=== PATIENT | female | born 1995 | race Two or more races ===

== ENCOUNTER 2016-12-03 13:25 | Emergency (ER) | payer OTHER ==
[2016-12-03 13:41] VITALS: BP 155/75; BMI 25.0
[2016-12-03] MEDS ORDERED: ACETAMINOPHEN 325 MG TABLET (FP) PO ONE (13:46)
--- NOTE | 2016-12-03 14:11 | PDOC ---
History of Present Illness - General Chief Complaint: Cold Symptoms Stated Complaint: FEVER, HEADACHE Time Seen by Provider: 12/03/16 13:51 History Source: Patient Exam Limitations: No Limitations - History of Present Illness Initial Comments: 12/03/16 14:07 Chief complaint: Fever, headache, sore throat productive cough History Of present illness: Patient is a 21 year old female with no significant medical history here today complaining of fever, with generalized headache and sore throat with productive cough of yellowish phlegm for 2 days. Patient reports 3 days ago she started to feel slightly ill with decreased energy. Denies any difficulty swallowing or breathing. Patient denies any nausea vomiting or diarrhea. Patient did not have influenza vaccine. Patient denies any sick contacts or any recent travel. Timing/Duration: intermittent Associated Symptoms: reports: cough (productive yellowish ), fever/chills, other (nasal congestion, headache, sore throat ) Past History - Past Medical History Allergies/Adverse Reactions: Allergies Allergy/AdvReac Type Severity Reaction Status Date / Time inh Allergy Rash Uncoded 12/03/16 13:37 Home Medications: Ambulatory Orders Oseltamivir Phosphate [Tamiflu -] 75 mg PO BID #10 capsule MDD 2 12/03/16 Other medical history: DENIES. - Surgical History Abdominal Surgery: Yes (intestinal resection) - Immunization History Immunization Up to Date: Yes - Psycho/Social/Smoking Cessation Hx Anxiety: No Suicidal Ideation: No Smoking History: Current some day smoker Have you smoked in the past 12 months: Yes Information on smoking cessation initiated: No Hx Alcohol Use: No Substance Use Type: None Review of Systems - Review of Systems Able to Perform ROS?: Yes Constitutional: Yes: Fever, Loss of Appetite HEENTM: Yes: Nose Congestion, Throat Pain Respiratory: Yes: Productive cough (yellowish ) Cardiac (ROS): No: Symptoms Reported ABD/GI: No: Symptoms Reported : No: Symptoms Reported Musculoskeletal: No: Symptoms Reported Integumentary: No: Symptoms Reported Neurological: Yes: Headache (generalized) *Physical Exam - Vital Signs Last Vital Signs Temp Pulse Resp BP Pulse Ox 101.8 F H 124 H 19 155/75 97 12/03/16 13:38 12/03/16 13:38 12/03/16 13:38 12/03/16 13:38 12/03/16 13:38 - Physical Exam General Appearance: Yes: Appropriately Dressed HEENT: positive: EOMI, [place], Normal ENT Inspection, TMs Normal, Pharyngeal Erythema, Tonsillar Erythema (with no uvular deviation), Nasal Congestion. negative: Tonsillar Exudate, Rhinorrhea, Sinus Tenderness Neck: negative: Lymphadenopathy (R), Lymphadenopathy (L) Respiratory/Chest: positive: Lungs Clear, Normal Breath Sounds. negative: Chest Tender, Respiratory Distress Cardiovascular: positive: Regular Rhythm, Regular Rate, S1, S2 Neurologic: positive: Fully Oriented, Alert, Normal Response, Responsive. negative: Respond to painful stimul, Numbness, Sensory Deficit Medical Decision Making - Medical Decision Making 12/03/16 14:11 Patient is a 21 year old female with no significant medical history here today complaining of fever, with generalized headache and sore throat with productive cough of yellowish phlegm for 2 days. Patient reports 3 days ago she started to feel slightly ill with decreased energy. Denies any difficulty swallowing or breathing. Patient denies any nausea vomiting or diarrhea. Patient did not have influenza vaccine. Patient denies any sick contacts or any recent travel. R/O Influenza A or B rapid throat C & S rapid PLAN: throat C & S rapid negative influenza A & B rapid + for influenza A tamiflu 75 mg bid for 5 days 12/03/16 15:10 12/03/16 15:11 *DC/Admit/Observation/Transfer Diagnosis at time of Disposition: Influenza A - Discharge Dispostion Disposition: HOME Condition at time of disposition: Stable - Prescriptions Prescriptions: Oseltamivir Phosphate [Tamiflu -] 75 mg PO BID #10 capsule MDD 2 - Patient Instructions Additional Instructions: Drink a lot of fluids and rest Take ibuprofen or acetaminophen as needed as directed by district plant supervisor for fever or body aches or headache Follow-up with your primary care provider within the next few days Return to emergency room if any difficulty breathing Patient voiced understanding of discharge instructions and all questions were answered
[2016-12-03 15:09] VITALS: PULSE 111; TEMP 100.8
== END 2016-12-03 15:20 | disposition home or self-care (01) ==
LOC: JERFT 13:25
DX: J09.X2 Influenza due to identified novel influenza A virus with other respiratory manifestations (principal)
CPT/HCPCS: 87070; 87430; 87804; 99281-25

== ENCOUNTER 2018-08-31 22:38 | Emergency (ER) | payer OTHER ==
[2018-08-31 22:42] VITALS: BP 127/72; PULSE 89; TEMP 98.9; BMI 25.0
[2018-08-31] MEDS ORDERED: ACETAMINOPHEN 500 MG TABLET (FP) PO ONE (23:39)
[2018-08-31] MEDS ORDERED: ACETAMINOPHEN 325 MG TABLET (FP) ONE (23:41)
--- NOTE | 2018-08-31 23:50 | PDOC ---
History of Present Illness - General Chief Complaint: Nausea/Vomiting Stated Complaint: Nausea/Vomiting Time Seen by Provider: 08/31/18 23:26 History Source: Patient Exam Limitations: No Limitations - History of Present Illness Initial Comments: This is a 22 YOF with h/o partial colectomy for congenital malrotation (first corrective abdominal surgery at 2 days old and second one at 12 years old) and occasional marijuana use who p/w one day of mild fever (measured 100 orally today at home), chills, malaise, middle and upper abdominal discomfort, nausea, and ~15 episodes of vomiting all onset this morning shortly after she awakened. She did not drink EtOH last night. The vomiting started NBNB but she had ~10 episodes first thing in the morning and toward the end of this she began to have light pink streaks in the vomitus. She denies any headache, neck pain, lightheadedness, chest pain, SOB, cough, sore throat, dysuria, or other symptoms. She did not get an influenza vaccination this year. Nobody around her has been ill lately. Family is concerned for the fact that she had a salad last night with the recent scare of contaminated [place] lettuce. Past History - Past Medical History Allergies/Adverse Reactions: Allergies Allergy/AdvReac Type Severity Reaction Status Date / Time isoniazid Allergy Verified 08/31/18 22:42 inh Allergy Rash Uncoded 08/31/18 22:42 Home Medications: Ambulatory Orders NK [No Known Home Medication] 04/11/18 COPD: No - Surgical History Abdominal Surgery: Yes (intestinal resection) - Immunization History Immunization Up to Date: Yes - Suicide/Smoking/Psychosocial Hx Smoking History: Never smoked Have you smoked in the past 12 months: Yes Hx Alcohol Use: No Drug/Substance Use Hx: No Substance Use Type: Marijuana Review of Systems - Review of Systems Able to Perform ROS?: Yes Comments:: GEN: fever, chills, malaise, no generalized weakness or weight change HEENT: no ear pain, sore throat, or vision change CV: no chest pain, palpitations, lightheadedness, syncope, or edema RESP: no cough, wheezing, or SOB GI: abdominal pain, nausea, vomiting, diarrhea, no constipation, or white/black/ bloody stool : no dysuria, hematuria, bleeding, or discharge MSK: no neck/back pain, muscle weakness/pain, or joint swelling/pain NEURO: mild headache, no seizure, vertigo, numbness, tingling, or focal weakness PSYCH: no substance use, no behavior change SKIN: no jaundice, no rash ROS otherwise negative except as noted in HPI *Physical Exam - Vital Signs Last Vital Signs Temp Pulse Resp BP Pulse Ox 98.9 F 89 18 127/72 99 08/31/18 22:39 08/31/18 22:39 08/31/18 22:39 08/31/18 22:39 08/31/18 22:39 - Physical Exam Comments: Initial Vital Signs Temp Pulse Resp BP Pulse Ox 98.9 F 89 18 127/72 99 08/31/18 22:39 08/31/18 22:39 08/31/18 22:39 08/31/18 22:39 08/31/18 22:39 GENERAL: well-appearing, A/Ox4, no distress, answers questions appropriately, family at bedside HEENT: PERRLA, EOMI, moist mucous membranes NECK/BACK: no midline ttp, no spinal stepoff or deformity, no hematoma, full ROM , neck supple CARDIOVASCULAR: regular rate/rhythm, normal S1S2, no MGR, strong peripheral pulses, capillary refill <2 seconds, extremities wwp, no edema LUNGS/RESPIRATORY: no respiratory distress, CTAB GI/ABDOMEN: symmetric [id number], normoactive BS, soft, mild periumbilical ttp , no midline pulsatile masses : no CVA tenderness EXTREMITIES: no muscle atrophy, no acute deformity, no edema SKIN: warm and dry, no pallor, no jaundice, no rash, no bruising, no skin breakdown, no cuts, no lesions NEUROLOGICAL: GCS 15, CN II-XII grossly intact, 5/5 strength proximally and distally, no facial droop ED Treatment Course - LABORATORY CBC & Chemistry Diagram: 09/01/18 01:49 09/01/18 01:49 Medical Decision Making - Medical Decision Making Adult patient p/w hematemesis. Initial Vital Signs Temp Pulse Resp BP Pulse Ox 98.9 F 89 18 127/72 99 08/31/18 22:39 08/31/18 22:39 08/31/18 22:39 08/31/18 22:39 08/31/18 22:39 Exam: As noted in Physical Exam section. Most likely viral gastroenteritis with possible My-Catalan tear from repeated vomiting/wretching, less likely GERD/PUD as the patient has no known h/ o GERD and denies burning sensation or strange taste in mouth. Possible influenza and the patient is within the Tamiflu window. Very unlikely esophageal varices, gastritis, Boerhaave syndrome, etc. Unlikely UTI as she has no urinary sxs but given the frequency W/U ordered: influenza swab, UA, UCx, hCG TX ordered: Tylenol 975 PO Laboratory Tests 08/31/18 09/01/18 23:40 00:57 Urine Color Ltyellow Urine Appearance Clear Urine pH 5.0 Ur Specific [place] 1.008 L Urine Protein Negative Urine Glucose (UA) Negative Urine Ketones Negative Urine Blood Negative Urine Nitrite Negative Urine Bilirubin Negative Urine Urobilinogen Negative Ur Leukocyte Esterase Negative Urine HCG, Qual Negative Influenza A (Rapid) Negative Influenza B (Rapid) Negative 09/01/18 01:31 Reassessment: Patient remains uncomfortable after Tylenol; will add labs, IVF, Pepcid, Maalox. Nausea without vomiting at this time and Zofran PO is added. 09/01/18 02:00 Patient's care is endorsed to night team resident and attending pending labs, IVF, re-assessment. *DC/Admit/Observation/Transfer Diagnosis at time of Disposition: Vomiting Qualifiers: Vomiting type: unspecified Vomiting Intractability: non-intractable Nausea presence: with nausea Qualified Code(s): R11.2 - Nausea with vomiting, unspecified Abdominal pain Qualifiers: Abdominal location: periumbilical Qualified Code(s): R10.33 - Periumbilical pain - Discharge Dispostion Disposition: HOME Condition at time of disposition: Improved - Referrals Referrals: Andreas Dobbs [Primary Care Provider] - - Patient Instructions Printed Discharge Instructions: DI for Vomiting -- Adult Additional Instructions: You were seen in the emergency department for the evaluation of your vomiting and abdominal pain. Your labs were within normal limits and your improved with our anti-acid medications. Please follow up with your primary care doctor within 72 hours after discharge for follow up care and management. Please use the following on outpatient basis for care management: fluids (Stay hydrated), tylenol as directed on label for pain and fever, pepcid for nausea and stomach pain control, and anti-acid to help with acid. Please return to the emergency department if the pain worsens or if you develop new concerning symptoms such as high fevers, severe abdominal pain with fevers, chest pain, shortness of breath, and confusion. Thank you. - Post Discharge Activity
--- NOTE | 2018-09-01 00:19 | PDOC ---
Attending Attestation - HPI HPI: 09/01/18 00:34 The patient is a 22 year old female with a past medical history of partial colectomy (first surgery was at 2 days old and the second was at 12 years old) here today for evaluation of nausea and vomiting. The patient reports that her vomiting began this morning and has had approximately 15 episodes of vomiting. She states that her vomit was initially nonbloody and nonbilious but has since noticed pink streaks in her vomit. The patient notes associated myalgia, mid abdominal pain, chills, and fever (measured to be 100 at home. Patient denies headache, lightheadedness. Denies sick contact. Denies chest pain , shortness of breath. Denies diarrhea. Denies lower extremity edema. Denies urinary symptoms. Denies neurologic symptoms. Allergies: isoniazid Surgical history: partial colectomy Social history: occasional marijuana and alcohol use. Denies tobacco use PCP: Andreas Dobbs <Hosea Alcocer - Last Filed: 09/01/18 01:14> - Resident Resident Name: Neda Hinkle - ED Attending Attestation I have performed the following: I have examined & evaluated the patient, The case was reviewed & discussed with the resident, I agree w/resident's findings & plan, Exceptions are as noted - Physicial Exam PE: GENERAL: Awake, alert, and fully oriented, in no acute distress HEAD: No signs of trauma EYES: PERRLA, EOMI, sclera anicteric, conjunctiva clear ENT: Auricles normal inspection, hearing grossly normal, nares patent, oropharynx clear without exudates. Dry mucosa NECK: Normal ROM, supple, no lymphadenopathy, JVD, or masses LUNGS: Breath sounds equal, clear to auscultation bilaterally. No wheezes, and no crackles HEART: Regular rate and rhythm, normal S1 and S2, no murmurs, rubs or gallops ABDOMEN: Soft, nontender, normoactive bowel sounds. No guarding, no rebound. No masses EXTREMITIES: Normal range of motion, no edema. No clubbing or cyanosis. No cords, erythema, or tenderness NEUROLOGICAL: Cranial nerves II through XII grossly intact. Normal speech, normal gait SKIN: Warm, Dry, normal turgor, no rashes or lesions noted. - Medical Decision Making Pt presents with fever at home, vomiting. Will give GI cocktail and check labs. If wnl and she improves, will DC home. <Emma Alexis - Last Filed: 09/08/18 07:58>
[2018-09-01] MEDS ORDERED: ONDANSETRON 4 MG TABLET PO PRN (01:08)
[2018-09-01 01:12] LABS: URINE APPEARANCE CLEAR; URINE BILIRUBIN NEGATIVE (<2.0 mg/dL); URINE COLOR LTYELLOW; URINE GLUCOSE (UA) NEGATIVE (NEGATIVE); URINE KETONE NEGATIVE (NEGATIVE); URINE LEUK ESTERASE NEGATIVE (NEGATIVE); URINE NITRITE NEGATIVE (NEGATIVE); URINE PROTEIN NEGATIVE (NEGATIVE); URINE UROBILINOGEN NEGATIVE mg/dL (0.2-1.0)
[2018-09-01 01:14] LABS: HCG,QUALITATIVE URINE Negative
[2018-09-01] MEDS ORDERED: SODIUM CHLORIDE 0.9% 500 ML INFUS.BAG IV ONE (01:25)
[2018-09-01] MEDS ORDERED: ONDANSETRON *ODT* 4 MG TABLET ONE (01:25)
[2018-09-01] MEDS ORDERED: MAG HYDROX/AL HYDROX/SIMETH -MYLANTA- ORAL SUSPENSION PO ONE (01:31)
[2018-09-01] MEDS ORDERED: FAMOTIDINE 20 MG/50 ML IVPB 20 MG/50 ML MG IVPB ONE ×2 (01:31→01:38)
[2018-09-01] MEDS ORDERED: MAG HYDROX/AL HYDROX/SIMETH 30 ML UNIT-DOSE CUP ONE (01:37)
[2018-09-01 02:10] LABS: BASO % 0.2 % (0-2.0); EOS % 0.9 % (0-4.5); HEMATOCRIT 38.8 % (32.4-45.2); HEMOGLOBIN 13.8 GM/dL (10.7-15.3); LYMPH % 10.6 % (8-40); MCH 29.3 pg (25.7-33.7); MCHC 35.7 g/dl (32.0-36.0); MEAN PLT VOLUME 8.7 fl (7.5-11.1); MONO % 8.1 % (3.8-10.2); NEUT % 80.2 % (42.8-82.8); PLATELET COUNT 235 K/MM3 (134-434); RBC 4.73 M/mm3 (3.60-5.2); RDW 14.1 % (11.6-15.6); WHITE BLOOD COUNT 6.8 K/mm3 (4.0-10.0)
[2018-09-01 02:33] LABS: ALBUMIN 4.2 g/dl (3.4-5.0); ALK PHOS 86 U/L (45-117); ANION GAP 8 MMOL/L (8-16); BILIRUBIN,TOTAL 0.6 mg/dL (0.2-1); BLOOD UREA NITROGEN 9 mg/dL (7-18); CHLORIDE 100 mmol/L (98-107); CO2 26 mmol/L (21-32); CREATININE 0.6 mg/dL (0.55-1.3); GLUCOSE,RANDOM 94 mg/dL (74-106); LIPASE 322 U/L (73-393); POTASSIUM 3.8 mmol/L (3.5-5.1); SGOT/AST 15 U/L (15-37); SGPT/ALT 20 U/L (13-61); SODIUM 134 mmol/L (136-145); TOT PROT 7.5 g/dl (6.4-8.2)
--- NOTE | 2018-09-01 03:01 | PDOC ---
*Physical Exam - Vital Signs Last Vital Signs Temp Pulse Resp BP Pulse Ox 98.9 F 89 18 127/72 99 08/31/18 22:39 08/31/18 22:39 08/31/18 22:39 08/31/18 22:39 08/31/18 22:39 - Physical Exam General Appearance: Yes: Nourished, Appropriately Dressed HEENT: positive: EOM[place]ILTON ED Treatment Course - LABORATORY CBC & Chemistry Diagram: 09/01/18 01:49 09/01/18 01:49 - ADDITIONAL ORDERS Additional order review: Laboratory Results 09/01/18 09/01/18 01:49 00:57 Sodium 134 L Potassium 3.8 Chloride 100 Carbon Dioxide 26 Anion Gap 8 BUN 9 Creatinine 0.6 Creat Clearance w eGFR > 60 Random Glucose 94 Calcium 9.0 Total Bilirubin 0.6 AST 15 ALT 20 Alkaline Phosphatase 86 Total Protein 7.5 Albumin 4.2 Lipase 322 Urine Color Ltyellow Urine Appearance Clear Urine pH 5.0 Ur Specific [place] 1.008 L Urine Protein Negative Urine Glucose (UA) Negative Urine Ketones Negative Urine Blood Negative Urine Nitrite Negative Urine Bilirubin Negative Urine Urobilinogen Negative Ur Leukocyte Esterase Negative Urine HCG, Qual Negative 09/01/18 01:49 RBC 4.73 MCV 82.0 MCHC 35.7 RDW 14.1 MPV 8.7 Neutrophils % 80.2 Lymphocytes % 10.6 D Monocytes % 8.1 Eosinophils % 0.9 Basophils % 0.2 - Medications Given in the ED: ED Medications Discontinued Medications Generic Name Dose Route Start Last Admin Trade Name Broq PRN Reason Stop Dose Admin Acetaminophen 975 mg 08/31/18 23:39 08/31/18 23:48 Tylenol - PO 08/31/18 23:40 975 mg ONCE ONE Administration Al Hydroxide/Mg Hydroxide 30 ml 09/01/18 01:31 09/01/18 01:50 Mylanta Suspension - PO 09/01/18 01:32 30 ml ONCE ONE Administration Famotidine/Sodium Chloride 20 mg in 50 mls @ 100 mls/hr 09/01/18 01:31 01:46 Pepcid 20 Mg Premixed Ivpb - IVPB 09/01/18 02:00 100 mls/hr ONCE ONE Administration Sodium Chloride 1,000 ml 09/01/18 01:25 09/01/18 01:35 Normal Saline - IV 09/01/18 01:26 1,000 ml ONCE ONE Administration *DC/Admit/Observation/Transfer Diagnosis at time of Disposition: Vomiting Qualifiers: Vomiting type: unspecified Vomiting Intractability: non-intractable Nausea presence: with nausea Qualified Code(s): R11.2 - Nausea with vomiting, unspecified Abdominal pain Qualifiers: Abdominal location: periumbilical Qualified Code(s): R10.33 - Periumbilical pain - Discharge Dispostion Disposition: HOME Decision to Admit order: No - Referrals Referrals: Andreas Dobbs [Primary Care Provider] - - Patient Instructions Printed Discharge Instructions: DI for Vomiting -- Adult Additional Instructions: You were seen in the emergency department for the evaluation of your vomiting and abdominal pain. Your labs were within normal limits and your improved with our anti-acid medications. Please follow up with your primary care doctor within 72 hours after discharge for follow up care and management. Please use the following on outpatient basis for care management: fluids (Stay hydrated), tylenol as directed on label for pain and fever, pepcid for nausea and stomach pain control, and anti-acid to help with acid. Please return to the emergency department if the pain worsens or if you develop new concerning symptoms such as high fevers, severe abdominal pain with fevers, chest pain, shortness of breath, and confusion. Thank you. - Post Discharge Activity
== END 2018-09-01 03:05 | disposition home or self-care (01) ==
LOC: JER 22:38
PROC: 3E033GC Introduction of Other Therapeutic Substance into Peripheral Vein, Percutaneous Approach (ICD-10-PCS; principal; 2018-08-31)
DX: R10.84 Generalized abdominal pain (principal); R11.2 Nausea with vomiting, unspecified; R51 Headache
CPT/HCPCS: 36415; 80053; 81003; 83690; 84703; 85025; 87086; 87804; 99282-25

== ENCOUNTER 2019-07-28 20:31 | Emergency (ER) | payer OTHER ==
[2019-07-28 20:39] VITALS: BMI 25.0
--- NOTE | 2019-07-28 21:23 | PDOC ---
History of Present Illness - General Chief Complaint: Vomiting Blood Stated Complaint: ABD PAIN Time Seen by Provider: 07/28/19 21:17 - History of Present Illness Initial Comments: 07/28/19 21:23 23 yo F partial colectomy for congenital malrotation (first corrective abdominal surgery at 2 days old and second one at 12 years old) and occasional marijuana use, presenting with vomiting. States that she was drinking alcohol ( 20 shots) and smoking marijuana at a constitution party last night, woke up this morning with vomiting X20 with some bloody streaks, unable to keep down any food or fluids, associated with diffuse abdominal pain most severe left of umbilicus. She is concerned that someone slipped her something because she woke up with difficulty walking straight, however, this has since resolved. Further complains of feeling tired. Denies CP, SOB, constipation/diarrhea, fevers/chills. Past History - Past Medical History Allergies/Adverse Reactions: Allergies Allergy/AdvReac Type Severity Reaction Status Date / Time isoniazid Allergy Verified 08/31/18 22:42 inh Allergy Rash Uncoded 08/31/18 22:42 Home Medications: Ambulatory Orders Cephalexin [Keflex] 500 mg PO BID 7 Days #14 capsule 07/29/19 COPD: No - Surgical History Abdominal Surgery: Yes (intestinal resection) - Immunization History Immunization Up to Date: Yes - Psycho Social/Smoking Cessation Hx Smoking History: Never smoked Have you smoked in the past 12 months: Yes Hx Alcohol Use: Yes Drug/Substance Use Hx: No Substance Use Type: Marijuana *Physical Exam - Vital Signs Last Vital Signs Temp Pulse Resp BP Pulse Ox 97.7 F 87 20 131/80 98 07/28/19 20:33 07/28/19 20:33 07/28/19 20:33 07/28/19 20:33 07/28/19 20:33 - Physical Exam Comments: 07/28/19 21:37 Gen: well-developed, well-nourished, NAD Neuro: AAOX4, CN II-XII intact, FTN intact, EOMI, PERRLA, 5/5 strength, SILT HEENT: atraumatic, normocephalic, dry mucous membranes Neck: trachea midline, supple CV: regular rate, regular rhythm, no murmurs, rubs, or gallops Pulm: CTA b/l, no wheezing Abd: soft, non-distended, mild ttp worst 2 cm left of the umbilicus MSK: full ROM, intact pulses Extr: no edema, no deformities Skin: warm, dry ED Treatment Course - LABORATORY CBC & Chemistry Diagram: 07/28/19 22:00 07/28/19 22:52 Medical Decision Making - Medical Decision Making 07/28/19 21:41 - CBC, CMP, lipase - UA/UC, upreg - 1L NS, Maalox, Pepcid - reassess 07/28/19 22:39 WBC 13.9 in setting of drinking and vomiting. 07/29/19 00:04 CMP wnl, UA with UTI, not . Will PO challenge, send Keflex for UTI. 07/29/19 00:08 Patient passed PO, no longer having symptoms. DC home. Discharge - Discharge Information Problems reviewed: Yes Clinical Impression/Diagnosis: Vomiting, UTI (urinary tract infection) Disposition: HOME - Additional Discharge Information Prescriptions: Cephalexin [Keflex] 500 mg PO BID 7 Days #14 capsule - Follow up/Referral - Patient Discharge Instructions Patient Printed Discharge Instructions: DI for Urinary Tract Infection (UTI), DI for Alcohol Abuse Additional Instructions: You were seen with nausea and vomiting after excessive drinking. Your labs were unconcerning, and you felt better after medication and fluids. You were also found to have a UTI. Take your Keflex twice a day as prescribed for a week. Please follow up with your primary care doctor within one week. Please do not drink to excess. Return to the ED if you develop worsening symptoms. - Post Discharge Activity
[2019-07-28] MEDS ORDERED: SODIUM CHLORIDE 0.9% 500 ML INFUS.BAG IV ONE (21:30)
[2019-07-28] MEDS ORDERED: FAMOTIDINE 20 MG/50 ML IVPB 20 MG/50 ML MG IVPB ONE ×2 (21:31→21:50)
[2019-07-28] MEDS ORDERED: MAG HYDROX/AL HYDROX/SIMETH 30 ML UNIT-DOSE CUP PO ONE (21:31)
[2019-07-28] MEDS ORDERED: MAG HYDROX/AL HYDROX/SIMETH 30 ML UNIT-DOSE CUP ONE (21:50)
[2019-07-28 22:10] LABS: BASO % 0.4 % (0-2.0); HEMATOCRIT 44.1 % (32.4-45.2); HEMOGLOBIN 14.4 GM/dL (10.7-15.3); LYMPH % 8.6 % (8-40); MCH 26.7 pg (25.7-33.7); MCHC 32.7 g/dl (32.0-36.0); MEAN CELL VOLUME 81.7 fl (80-96); MEAN PLT VOLUME 8.4 fl (7.5-11.1); MONO % 4.2 % (3.8-10.2); NEUT % 86.8 % (42.8-82.8); PLATELET COUNT 310 K/MM3 (134-434); RDW 15.5 % (11.6-15.6); WHITE BLOOD COUNT 13.9 K/mm3 (4.0-10.0)
[2019-07-28 22:36] LABS: PHOSPHOROUS 3.6 mg/dL (2.5-4.9)
[2019-07-28 23:33] LABS: ALBUMIN 4.7 g/dl (3.4-5.0); BILIRUBIN,TOTAL 0.6 mg/dL (0.2-1); BLOOD UREA NITROGEN 15.3 mg/dL (7-18); CALCIUM 9.5 mg/dL (8.5-10.1); CREATININE 0.7 mg/dL (0.55-1.3); POTASSIUM 3.7 mmol/L (3.5-5.1); TOT PROT 7.8 g/dl (6.4-8.2)
[2019-07-28 23:46] LABS: EPI CELLS 12.6 /HPF (0-5/HPF); HYALINE CASTS 2 /lpf (0-8); PH,URINE 5.5 (5.0-8.0); URINE APPEARANCE CLOUDY; URINE BACTERIA 93.6 /hpf (NEGATIVE); URINE BILIRUBIN NEGATIVE (NEGATIVE); URINE COLOR YELLOW; URINE GLUCOSE (UA) NEGATIVE (NEGATIVE); URINE KETONE 2+ (NEGATIVE); URINE LEUK ESTERASE TRACE (NEGATIVE); URINE NITRITE NEGATIVE (NEGATIVE); URINE PROTEIN 1+ (NEGATIVE); URINE RBC 5 /hpf (0-4); URINE UROBILINOGEN 0.2 mg/dL (0.2-1.0); URINE WBC 8 /hpf (0-5)
[2019-07-29 00:35] VITALS: BP 120/76; PULSE 70; TEMP 98.5
--- NOTE | 2019-07-29 00:41 | PDOC ---
Documentation entered by Rodri Charles SCRIBE, acting as scribe for Loren Young MD. Loren Young MD: This documentation has been prepared by the Araceli oneal Nirvannie, SCRIBE, under my direction and personally reviewed by me in its entirety. I confirm that the documentation accurately reflects all work, treatment, procedures, and medical decision making performed by me. Attending Attestation - Resident Resident Name: Flakita Bar - ED Attending Attestation I have performed the following: I have examined & evaluated the patient, The case was reviewed & discussed with the resident, I agree w/resident's findings & plan - HPI HPI: 07/28/19 22:00 The patient is a 23 year old female, with a significant past medical history of congenital malrotation , who presents to the emergency department with, diffuse umbilical abdominal pain with associated vomiting. As per patient, she was partying last night at which time she smoked marijuana and had approximately 20 shots of alcohol. SHe notes waking up this morning and vomiting at least 20x. She denies recent fevers, chills, headache or dizziness. She denies recent nausea, vomit, diarrhea or constipation. She denies recent dysuria, frequency, urgency or hematuria. She denies recent chest pain or shortness of breath. Allergies: Isoniazid. - Physicial Exam PE: 07/29/19 00:38 Normal exam; diffuse minimal abdominal discomfort. No rebound and no guarding. 07/29/19 00:38 Afebrile Aree with resident exam. - Medical Decision Making 07/29/19 00:39 Pt has normal labs, and early UTI on UA. Pt has normal exam and normal vitals. 07/29/19 00:41 Home with keflex.
== END 2019-07-29 00:34 | disposition home or self-care (01) ==
LOC: JER 20:31
PROC: 3E033GC Introduction of Other Therapeutic Substance into Peripheral Vein, Percutaneous Approach (ICD-10-PCS; principal; 2019-07-28)
DX: N39.0 Urinary tract infection, site not specified (principal); F12.10 Cannabis abuse, uncomplicated; F10.10 Alcohol abuse, uncomplicated
CPT/HCPCS: 36415; 80053; 81003; 83690; 83735; 84100; 84703; 85025; 87086; 96365; 99282-25

== ENCOUNTER 2021-07-14 21:15 | Emergency (ER) | payer OTHER ==
[2021-07-14 21:32] VITALS: BP 112/76; PULSE 65; TEMP 98.1; BMI 26.6
[2021-07-14] MEDS ORDERED: ACETAMINOPHEN 500 MG TABLET (FP) PO ONE (22:23)
[2021-07-14] MEDS ORDERED: ACETAMINOPHEN 500 MG TABLET (FP) ONE (23:21)
== END 2021-07-14 23:49 | disposition home or self-care (01) ==
LOC: JERFT 21:15
DX: M79.671 Pain in right foot (principal); S99.912A Unspecified injury of left ankle, initial encounter; W50.0XXA Accidental hit or strike by another person, initial encounter; Y92.9 Unspecified place or not applicable
CPT/HCPCS: 73610-TC-RT-FY; 73630-TC-RT-FY; 99284-25

== ENCOUNTER 2021-09-15 23:29 | Emergency (ER) | payer OTHER ==
[2021-09-15 23:36] VITALS: BP 132/78; PULSE 78; TEMP 98.5; BMI 25.0
[2021-09-16 00:37] LABS: EPI CELLS 21 /uL (0-25.1); HYALINE CASTS 1 /uL (0-3.1); PH,URINE 5.5 (5.0-8.0); URINE APPEARANCE CLEAR; URINE BACTERIA 227 /uL (0-1359); URINE BILIRUBIN NEGATIVE (NEGATIVE); URINE COLOR YELLOW; URINE GLUCOSE (UA) NEGATIVE (NEGATIVE); URINE KETONE NEGATIVE (NEGATIVE); URINE LEUK ESTERASE TRACE (NEGATIVE); URINE NITRITE NEGATIVE (NEGATIVE); URINE PROTEIN NEGATIVE (NEGATIVE); URINE RBC 77 /uL (0-23.9); URINE UROBILINOGEN 0.2 mg/dL (0.2-1.0); URINE WBC 40 /uL (0-25.8)
[2021-09-16 01:10] LABS: HCG,QUALITATIVE URINE Negative
[2021-09-16 01:45] LABS: BASO % 0.5 % (0-2.0); EOS % 0.3 % (0-4.5); HEMATOCRIT 40.2 % (32.4-45.2); HEMOGLOBIN 13.5 GM/dL (10.7-15.3); LYMPH % 29.2 % (8-40); MCHC 33.6 g/dl (32.0-36.0); MEAN CELL VOLUME 83.5 fl (80-96); MEAN PLT VOLUME 8.2 fl (7.5-11.1); MONO % 9.9 % (3.8-10.2); NEUT % 60.1 % (42.8-82.8); PLATELET COUNT 270 10^3/uL (134-434); RBC 4.82 M/mm3 (3.60-5.2); RDW 13.9 % (11.6-15.6); WHITE BLOOD COUNT 6.6 K/mm3 (4.0-10.0)
[2021-09-16 02:07] LABS: ALBUMIN 3.7 g/dl (3.4-5.0); BLOOD UREA NITROGEN 8.6 mg/dL (7-18); INR 1.13 (0.83-1.09); PROTHROMBIN TIME (PATIENT) 12.7 SEC (9.7-13.0)
[2021-09-16 02:10] LABS: ACTIVATED PTT 35.7 SECONDS (25.2-36.5); CREATININE 0.6 mg/dL (0.55-1.3)
[2021-09-16 02:12] LABS: BILIRUBIN,TOTAL 0.3 mg/dL (0.2-1)
[2021-09-16] MEDS ORDERED: SULFAMETHOXAZOLE/TRIMETHOPRIM 800MG/160MG D.S. TABLET PO ONE (03:15)
[2021-09-16] MEDS ORDERED: SULFAMETHOXAZOLE/TRIMETHOPRIM 800MG/160MG D.S. TABLET ONE (03:15)
== END 2021-09-16 03:29 | disposition home or self-care (01) ==
LOC: JER 23:29
DX: R10.9 Unspecified abdominal pain (principal)
CPT/HCPCS: 36415; 74177-TC; 80053; 81003; 84703; 85025; 85610; 85730; 86850; 86900; 86901; 87086; 99285-25; Q9967